=== PATIENT | female | born 1970 | race African-American/Black ===

== ENCOUNTER 2020-10-25 21:04 | Emergency (ER) | payer MEDICARE, MEDICAID ==
[~2020-10-25] VITALS: Ht 170.2 cm; Wt 78.0 kg
[2020-10-25] MEDS ORDERED: HYDROmorphone 2 MG/ML, 1ML ONE (21:27)
[2020-10-25] MEDS ORDERED: ONDANSETRON 2MG/ML, 2ML IVPush ONE (21:30)
[2020-10-25] MEDS ORDERED: SODIUM CHLORIDE FLUSH 10ML SYR IVF ONE (21:30)
[2020-10-25] MEDS ORDERED: SODIUM CHLORIDE 0.9% 1,000ML IVBOLUS ONE (21:30)
[2020-10-25] MEDS: HYDROmorphone 2 MG/ML, 1ML IVPush PRN ×2 (21:39→22:09)
[2020-10-25] MEDS: PLEASE ENTER ALLERGIES MC SCH ×2 (21:48→22:29)
[2020-10-25 21:49] LABS: ALANINE AMINOTRANSFERASE 23 U/L (12-78); ALBUMIN 3.5 g/dL (3.4-5.0); ANION GAP 6 mmol/L (5-15); CALCIUM 8.8 mg/dL (8.5-10.1); CHLORIDE 106 mmol/L (98-107); CREATININE 0.92 mg/dL (0.55-1.02)
[2020-10-25 21:53] LABS: ALKALINE PHOSPHATASE 111 U/L (45-117); BILIRUBIN,TOTAL 0.6 mg/dL (0.2-1.0); TOTAL PROTEIN 7.4 g/dL (6.4-8.2); TROPONIN I < 0.015 ng/mL (0.000-0.045)
[2020-10-25 21:55] LABS: BASOPHILS % (AUTO) 0 % (0-1); EOSINOPHILS % (AUTO) 1 % (1-7); LYMPHOCYTES % (AUTO) 2 % (22-44); MEAN CORPUSCULAR HEMOGLOBIN 28.5 pg (27.0-34.8); MEAN CORPUSCULAR HGB CONC 32.8 g/dL (32.4-35.8); MEAN PLATELET VOLUME 7.8 fL (7.4-10.4); MONOCYTES % (AUTO) 7 % (2-9); NEUTROPHILS % (AUTO) 90 % (42-75); PLATELET COUNT 291 x10^3/uL (130-400); RED BLOOD COUNT 4.38 x10^6/uL (3.82-5.3); RED CELL DISTRIBUTION WIDTH 13.5 % (9.6-15.2)
[2020-10-25 21:56] LABS: MD NO
--- NOTE | 2020-10-25 22:13 | NUR ---
pt out to ct with tech as transporter, taken via [employer] with no signs or symptoms of acute distress noted respirations even and unlabored. significant other left a phone number for contact regarding any changes or updates. shabana,
[2020-10-25] MEDS ORDERED: METOCLOPRAMIDE 5 MG/ML, 2ML ONE (22:31)
--- NOTE | 2020-10-25 22:39 | NUR ---
pt back from ct states pain is down from 10/10 to 4/10, states she will call if pain becomes intolerable. pt complaining of returning nausea, md aware with new order noted for reglan iv. medication administered as ordered, pt verbalizes appreciation for cares and concern. no signs or symptoms of acute distress noted respirations even and unlabored. pt on cloth checker, satting well on nc with o2 at 2l/min, bed rails up bilaterally and call light within reach. pt with ivf infusing well at left hand. denies need at this time, lights low in room for comfort
[2020-10-25] MEDS ORDERED: OMNIPAQUE 350 MG/ML, 100ML BOTTLE ONE (22:44)
[2020-10-25] MEDS ORDERED: METOCLOPRAMIDE 5 MG/ML, 2ML IVPush ONE (23:00)
[2020-10-25 23:20] VITALS: BP 119/54
--- NOTE | 2020-10-26 01:02 | NUR ---
RN ACCESSED CHART D/T LAB QUESTIONING NOT RECEIVING URINE SAMPLE YESTERDAY.
== END 2020-10-25 23:22 | disposition home or self-care (01) ==
LOC: ED 21:34
DX: R10.84 Generalized abdominal pain (principal); R11.2 Nausea with vomiting, unspecified; R94.31 Abnormal electrocardiogram [ECG] [EKG]; I10 Essential (primary) hypertension; E11.9 Type 2 diabetes mellitus without complications; Z90.49 Acquired absence of other specified parts of digestive tract; Z88.2 Allergy status to sulfonamides; Z88.8 Allergy status to other drugs, medicaments and biological substances; Z88.6 Allergy status to analgesic agent
CPT/HCPCS: 36415; 74177; 80053; 83690; 84484; 84703; 85025; 93005; 96361; 96374; 96375; 99285; J1170; J2765; J7030; Q9967